=== PATIENT | female | born 1975 | race Caucasian/White ===

== ENCOUNTER → 2020-06-30 | Outpatient (CLI) | payer OTHER ==
[~2020-06-30] MED LIST: CRUTCH4 XX; IBUP800 PO; LOSA50 PO; Norco 5-325 Ta1 EACH PO
[2020-07-02 16:08] LABS: HPV 16 Negative (Negative); HPV 18 Negative (Negative); HPV OTHER HR TYPES Negative (Negative)
== END | disposition home or self-care (01) ==
LOC: LAB SHORT 10:50 → LAB 10:50
PROVIDERS: Nurse Practitioner
DX: Z12.4 Encounter for screening for malignant neoplasm of cervix (principal)
CPT/HCPCS: 87624; G0123

== ENCOUNTER 2021-02-24 08:19 | Day surgery (SDC) | payer OTHER ==
[2021-02-22 10:46] LABS: BASOPHILS ABSOLUTE AUTO 0.03 K/mm3 (0.00-0.23); BASOPHILS PERCENT AUTO 0 % (0-2); EOSINOPHILS ABSOLUTE AUTO 0.11 K/mm3 (0.00-0.68); EOSINOPHILS PERCENT AUTO 1 % (0-6); Hematocrit 38.5 % (33.0-51.0); IMMATURE GRAN ABSOLUTE AUTO 0.03 K/mm3 (0.00-0.10); IMMATURE GRAN PERCENT AUTO 0 % (0-1); LYMPHOCYTES ABSOLUTE AUTO 2.24 K/mm3 (0.84-5.20); LYMPHOCYTES PERCENT AUTO 28 % (21-46); MONOCYTES ABSOLUTE AUTO 0.42 K/mm3 (0.16-1.47); MONOCYTES PERCENT AUTO 5 % (4-13); Mean Corpuscular HGB 30.9 pg (26.0-34.0); Mean Corpuscular HGB Conc 33.8 g/dL (31.5-36.5); Mean Corpuscular Volume 91 fL (80-100); Mean Platelet Volume 9.9 fL (9.1-12.4); NEUTROPHILS ABSOLUTE AUTO 5.15 K/mm3 (1.96-9.15); NEUTROPHILS PERCENT AUTO 64 % (41-73); Platelet Count 271 K/mm3 (150-400); RDW Coefficient Variation 12.7 % (11.7-14.2); RDW Standard Deviation 41.8 fL (35.1-46.3); Red Blood Cell Count 4.21 M/mm3 (3.80-5.20); White Blood Cell Count 7.98 K/mm3 (4.00-11.30)
[2021-02-22 11:08] LABS: Anion Gap 7 mmol/L (6-16); Blood Urea Nitrogen 13 mg/dL (8-24); Bun/Creatinine Ratio 20.1 (12.0-20.0); CO2, Blood 24 mmol/L (21-32); Chloride, Blood 111 mmol/L (98-108); Creatinine, Blood 0.65 mg/dL (0.40-1.00); Glomerular Filtration Rate >60 (60-); Glucose, Blood 182 mg/dL (70-99); Sodium, Blood 142 mmol/L (136-145)
[~2021-02-24] VITALS: Ht 152.4 cm; Wt 113.4 kg
[~2021-02-24 08:19] MED LIST changes: +ALBU90OI; +ATOR10 PO; +METF500C PO; +Prozac20 MG; +TOPROL XL25 MG PO; +TRAZ50
--- NOTE | 2021-02-24 17:15 | NUR ---
DISCHARGE SUMMARY PT STATUS POST FOR LAP HYSTER WITH BILAT SALPINGECTOMY AND R OOPHORECTOMY. PT TOLERATING PO INTAKE WITHOUT NAUSEA. PT ALSO ABLE TO GET UP TO THE BATHROOM WITH A SBA TO VOID. PT VOIDED WITHOUT DIFFICULTY POST SURGERY. PT MEDICATED X2 FOR PAIN POST SURGERY. DC'D HOME WITH .
--- NOTE | 2021-03-01 11:07 | NUR ---
03/01/21 1107 Lo Cheeny VERIFICATIONS: EDIT CHART.
== END 2021-02-24 17:10 | disposition home or self-care (01) ==
LOC: ORSCMMR 08:19 → ORD 09:45 → ORSCMMR 12:43 → SURS 12:43 → ORSCMMR 17:10
PROVIDERS: Obstetrics & Gynecology
PROC: 8E0W4CZ Robotic Assisted Procedure of Trunk Region, Percutaneous Endoscopic Approach (ICD-10-PCS; principal; 2021-02-24 09:45)
PROC: 0UT74ZZ Resection of Bilateral Fallopian Tubes, Percutaneous Endoscopic Approach (ICD-10-PCS; principal; 2021-02-24 09:45)
PROC: 0UT04ZZ Resection of Right Ovary, Percutaneous Endoscopic Approach (ICD-10-PCS; principal; 2021-02-24 09:45)
PROC: 0UT94ZZ Resection of Uterus, Percutaneous Endoscopic Approach (ICD-10-PCS; principal; 2021-02-24 09:45)
DX: N92.0 Excessive and frequent menstruation with regular cycle (principal); D25.9 Leiomyoma of uterus, unspecified; N83.291 Other ovarian cyst, right side; I10 Essential (primary) hypertension; E78.5 Hyperlipidemia, unspecified; E11.9 Type 2 diabetes mellitus without complications; J45.909 Unspecified asthma, uncomplicated; F41.8 Other specified anxiety disorders; E66.01 Morbid (severe) obesity due to excess calories; Z68.42 Body mass index [BMI] 45.0-49.9, adult; Z79.84 Long term (current) use of oral hypoglycemic drugs; Z79.899 Other long term (current) drug therapy
CPT/HCPCS: 58571; S2900; 36415; 80048; 82947; 83036; 84703; 85025; 86850; 86900; 86901; 88307; A9270; J0690; J1100; J1885; J2250; J2370; J2405; J2704; J3010; J7120

== ENCOUNTER → 2022-10-20 | Outpatient (CLI) | payer OTHER ==
[2022-10-20 19:33] LABS: Adenovirus F 40/41 Not Detected (NOT DETECT); Astrovirus Not Detected (NOT DETECT); Campylobacter Sp Not Detected (NOT DETECT); Cryptosporidium Not Detected (NOT DETECT); Cyclospora Cayetanensis Not Detected (NOT DETECT); E. Coli O157 Not Detected (NOT DETECT); Entamoeba Histolytica Not Detected (NOT DETECT); Enteroaggregative E. coli-EAEC Not Detected (NOT DETECT); Enteropathogenic E. coli-EPEC Not Detected (NOT DETECT); Enterotoxigenic E. coli-ETEC Not Detected (NOT DETECT); Giardia Lamblia Not Detected (NOT DETECT); Norovirus GI/GII Not Detected (NOT DETECT); Plesiomonas Shigelloides Not Detected (NOT DETECT); Rotavirus A Not Detected (NOT DETECT); Salmonella Sp Not Detected (NOT DETECT); Sapovirus Not Detected (NOT DETECT); Shiga Toxin-prod E. coli-STEC Not Detected (NOT DETECT); Shigella/Enteroin E. coli-EIEC Not Detected (NOT DETECT); Vibrio Cholerae Not Detected (NOT DETECT); Vibrio Sp Not Detected (NOT DETECT); Yersinia Enterocolitica Not Detected (NOT DETECT)
== END | disposition home or self-care (01) ==
LOC: LAB SHORT 17:21 → LAB 17:21
PROVIDERS: Physician Assistant Medical
DX: R19.7 Diarrhea, unspecified (principal)
CPT/HCPCS: 87507

== ENCOUNTER 2024-12-27 19:22 | Emergency (ER) | payer BC, OTHER ==
[~2024-12-27] VITALS: Ht 152.4 cm; Wt 100.7 kg
[~2024-12-27 19:22] MED LIST changes: +DOXE25
[2024-12-27 20:05] LABS: Source, Urine Clean Catch
[2024-12-27 20:08] LABS: Bilirubin, Urine Neg (Neg); Color, Urine Yellow (P-Yellow); Glucose Qualitative, Urine 4+ (Neg); Ketones, Urine 1+ (Neg); Leukocyte Esterase, Urine 1+ (Neg); Protein, Urine 2+ (Neg); Specific Gravity, Urine 1.025 (1.003-1.022); Urobilinogen, Urine NORM (Normal)
[2024-12-27 20:22] LABS: Red Blood Cells, Urine TNTC /hpf (0-2); White Blood Cells, Urine 0-2 /hpf (0-5)
[2024-12-27 20:28] VITALS: BP 188/99
[2024-12-27] MEDS ORDERED: CEPH500 PO ×2 (20:33)
== END 2024-12-27 20:36 | disposition home or self-care (01) ==
LOC: ER 19:22
PROVIDERS: Student in an Organized Health Care Education/Training Program
DX: N30.01 Acute cystitis with hematuria (principal); E11.9 Type 2 diabetes mellitus without complications; I10 Essential (primary) hypertension; Z91.040 Latex allergy status; Z87.442 Personal history of urinary calculi; Z79.899 Other long term (current) drug therapy; Z79.84 Long term (current) use of oral hypoglycemic drugs
CPT/HCPCS: 81001; 87086; 99283; A9270

== ENCOUNTER 2024-12-31 18:05 | Emergency (ER) | payer BC, OTHER ==
[~2024-12-31] VITALS: Ht 152.4 cm; Wt 100.7 kg
[~2024-12-31 18:05] MED LIST changes: -ALBU90OI; +ALBU90OI INH; +CEPH500 PO; -DOXE25; +DOXE25 PO
[2024-12-31] MEDS ORDERED: Ketorolac Tromethamine 30mg Vial IV ONE (18:20)
[2024-12-31 18:57] LABS: BASOPHILS ABSOLUTE AUTO 0.04 K/mm3 (0.00-0.23); BASOPHILS PERCENT AUTO 0 % (0-2); EOSINOPHILS ABSOLUTE AUTO 0.13 K/mm3 (0.00-0.68); EOSINOPHILS PERCENT AUTO 1 % (0-6); Hematocrit 43.6 % (33.0-51.0); Hemoglobin 14.9 g/dL (11.5-16.0); IMMATURE GRAN ABSOLUTE AUTO 0.03 K/mm3 (0.00-0.10); IMMATURE GRAN PERCENT AUTO 0 % (0-1); LYMPHOCYTES ABSOLUTE AUTO 3.60 K/mm3 (0.84-5.20); LYMPHOCYTES PERCENT AUTO 37 % (21-46); MONOCYTES ABSOLUTE AUTO 0.46 K/mm3 (0.16-1.47); MONOCYTES PERCENT AUTO 5 % (4-13); Mean Corpuscular HGB Conc 34.2 g/dL (31.5-36.5); Mean Corpuscular Volume 90 fL (80-100); NEUTROPHILS ABSOLUTE AUTO 5.59 K/mm3 (1.96-9.15); NEUTROPHILS PERCENT AUTO 57 % (41-73); NRBC ABSOLUTE 0.00 K/mm3 (0.00-0.02); NRBC Auto 0.0 /100 WBC (0.0-0.2); Platelet Count 263 K/mm3 (150-400); RDW Coefficient Variation 11.7 % (11.7-14.2); RDW Standard Deviation 38.0 fL (35.1-46.3)
[2024-12-31 18:59] LABS: Source, Urine Clean Catch
[2024-12-31 19:12] LABS: Bilirubin, Urine Neg (Neg); Color, Urine Brown (P-Yellow); Glucose Qualitative, Urine 3+ (Neg); Ketones, Urine 1+ (Neg); Leukocyte Esterase, Urine 1+ (Neg); Protein, Urine 4+ (Neg); Specific Gravity, Urine 1.025 (1.003-1.022); Urobilinogen, Urine 1+ (Normal)
[2024-12-31 19:15] LABS: Red Blood Cells, Urine TNTC /hpf (0-2)
[2024-12-31 19:37] LABS: Alanine Aminotransfer (ALT/SGP 46.0 U/L (12-78); Albumin, Blood 3.8 g/dL (3.4-5.0); Albumin/Globulin Ratio 1.1 (0.8-1.8); Anion Gap 7.0 mmol/L (3-11); Aspartate Aminotrans (AST/SGOT 22.0 U/L (12-37); Bilirubin, Total 0.3 mg/dL (0.1-1.0); Blood Urea Nitrogen 8.0 mg/dL (8-24); CO2, Blood 24.0 mmol/L (21-32); Calcium, Blood 9.1 mg/dL (8.5-10.1); Chloride, Blood 106.0 mmol/L (98-108); Creatinine, Blood 0.54 mg/dL (0.40-1.00); Globulin, Blood 3.5 g/dL (2.2-4.0); Glucose, Blood 247.0 mg/dL (70-99); Potassium, Blood 3.7 mmol/L (3.5-5.5); Sodium, Blood 133.0 mmol/L (136-145); Total Protein, Blood 7.3 g/dL (6.4-8.2)
[2024-12-31] MEDS ORDERED: NS 1,000 ML IV SCH (20:45)
[2024-12-31 23:17] LABS: Source, Urine Straight Cath
[2024-12-31 23:33] VITALS: BP 200/130
[2025-01-01] LABS: Bilirubin, Urine Neg (Neg); Glucose Qualitative, Urine Neg (Neg); Ketones, Urine Neg (Neg); Leukocyte Esterase, Urine Neg (Neg); Protein, Urine 2+ (Neg); Specific Gravity, Urine 1.010 (1.003-1.022); Urobilinogen, Urine NORM (Normal)
[2025-01-01 00:01] LABS: Color, Urine Red (P-Yellow)
[2025-01-01 00:02] LABS: Red Blood Cells, Urine TNTC /hpf (0-2); White Blood Cells, Urine 0-2 /hpf (0-5)
[2025-01-02] MEDS ORDERED: LOSA50 PO (06:40)
[2025-01-02] MEDS ORDERED: BASAGLAR K100 UNIT/3 SC (06:41)
[2025-01-02] MEDS ORDERED: REGLAN1013 PO (06:42)
== END 2025-01-01 00:38 | disposition home or self-care (01) ==
LOC: ER 18:05
PROVIDERS: Student in an Organized Health Care Education/Training Program
DX: N13.2 Hydronephrosis with renal and ureteral calculous obstruction (principal); N83.202 Unspecified ovarian cyst, left side; E87.1 Hypo-osmolality and hyponatremia; E11.65 Type 2 diabetes mellitus with hyperglycemia; R74.8 Abnormal levels of other serum enzymes; R31.9 Hematuria, unspecified; I10 Essential (primary) hypertension; Z79.84 Long term (current) use of oral hypoglycemic drugs; Z79.899 Other long term (current) drug therapy; Z91.040 Latex allergy status
CPT/HCPCS: 51701; 74177; 80053; 81001; 83690; 85025; 87086; 87106; 96361; 96374-59; 99284-25; J1885; J7030; Q9967

== ENCOUNTER 2025-01-02 06:28 | Day surgery (SDC) | payer BC, OTHER ==
[~2025-01-02] VITALS: Ht 152.4 cm; Wt 98.4 kg
[2025-01-02] VITALS (11 sets, daily range): BP systolic 111–157; BP diastolic 59–97
[2025-01-02] MEDS ORDERED: LOSA50 PO (06:40)
[2025-01-02] MEDS ORDERED: BASAGLAR K100 UNIT/3 SC (06:41)
[2025-01-02] MEDS ORDERED: REGLAN1013 PO (06:42)
[2025-01-02] MEDS ORDERED: CeFAZolin Sodium 2,000 MG in NS 100 ML IV SCH (07:25)
[2025-01-02] MEDS ORDERED: CeFAZolin Sodium 2,000 MG VIAL ONE (07:32)
[2025-01-02] MEDS ORDERED: Midazolam HCl 1MG / ML 2ML Vial ONE (07:50)
[2025-01-02] MEDS ORDERED: FentaNYL Citrate 50 MCG/ML 2 ML Injection ONE (07:50)
[2025-01-02] MEDS ORDERED: HYDROmorphone HCl/Pf 1MG SYR IV PRN ×2 (08:25)
[2025-01-02] MEDS ORDERED: FentaNYL Citrate 50 MCG/ML 2 ML Injection IV PRN ×2 (08:25→08:30)
[2025-01-02] MEDS ORDERED: Ondansetron HCl 2 MG / ML 2ML Vial IV PRN (08:30)
[2025-01-02] MEDS ORDERED: Sugammadex Sodium 200 MG/2ML SDV (100 MG/ML) ONE (08:47)
[2025-01-02] MEDS ORDERED: HYDROcodone 5-APAP 325 TAB PO PRN (09:45)
--- NOTE | 2025-01-02 10:16 | NUR ---
DISCHARGE NOTE PT A&OX4, BREATHING RA, NO NAUSEA AND PAIN CONTROLLED WITH PO PAIN MEDICATIONS. Patient up to Ambulate independently. Gait steady. Discharge instructions reviewed with patient. Patient verbalizes understanding. Copy given to patient to take home. Discharged via wheelchair to private car for ride home.
== END 2025-01-02 10:13 | disposition home or self-care (01) ==
LOC: ORD 06:28 → ORSCMMR 06:28 → ORD 07:30 → ORSCMMR 10:13 → ORD 10:13
PROVIDERS: Urology
PROC: BT1FZZZ Fluoroscopy of Left Kidney, Ureter and Bladder (ICD-10-PCS; principal; 2025-01-02 08:00)
PROC: 0T778DZ Dilation of Left Ureter with Intraluminal Device, Via Natural or Artificial Opening Endoscopic (ICD-10-PCS; principal; 2025-01-02 08:00)
DX: N20.2 Calculus of kidney with calculus of ureter (principal); R31.0 Gross hematuria; N13.1 Hydronephrosis with ureteral stricture, not elsewhere classified; I10 Essential (primary) hypertension; F17.210 Nicotine dependence, cigarettes, uncomplicated; E11.9 Type 2 diabetes mellitus without complications; K21.9 Gastro-esophageal reflux disease without esophagitis; G47.33 Obstructive sleep apnea (adult) (pediatric); E66.01 Morbid (severe) obesity due to excess calories; Z68.41 Body mass index [BMI] 40.0-44.9, adult; J45.909 Unspecified asthma, uncomplicated; Z79.899 Other long term (current) drug therapy; Z79.4 Long term (current) use of insulin; Z79.84 Long term (current) use of oral hypoglycemic drugs
CPT/HCPCS: 82947; 93005; 93010; A9270; C1758; C1769; C2617; J0690; J2250; J2704; J3010; J7120

== ENCOUNTER → 2025-01-15 | Outpatient (CLI) | payer BC, OTHER ==
[~2025-01-15] MED LIST changes: +BASAGLAR K100 UNIT/3 SC; +REGLAN1013 PO
== END ==
LOC: LAB 11:41 → LAB SHORT 11:41
DX: D49.0 Neoplasm of unspecified behavior of digestive system (principal)
CPT/HCPCS: 88305

== ENCOUNTER 2025-01-30 10:33 | Day surgery (SDC) | payer BC, OTHER ==
[2025-01-30] VITALS (7 sets, daily range): BP systolic 142–172; BP diastolic 84–97
[~2025-01-30] VITALS: Ht 152.4 cm; Wt 96.8 kg
[~2025-01-30 10:33] MED LIST changes: +BUDESONIDE-FO10.2 G3 INH; +METO25ER PO; +TRAM50 PO
[2025-01-30] MEDS ORDERED: CeFAZolin Sodium 2,000 MG in NS 100 ML IV SCH (11:50)
--- NOTE | 2025-01-30 12:13 | NUR ---
Ambulatory in Day Surgery. History, Chart, Medications and Allergies reviewed before start of procedure. Lungs clear T/O to Auscultation. Patient confirms NPO status and agrees with scheduled surgery. Pre-Op teaching done. Pt verbalizes understanding. Patient States Post-Procedure ride home has been arranged. Patient reports completing Chlorhexadine shower X2 prior to admission to hospital.
[2025-01-30] MEDS ORDERED: FentaNYL Citrate 50 MCG/ML 2 ML Injection ONE (12:53)
[2025-01-30] MEDS ORDERED: Rocuronium Bromide 10 MG/ML 5ML Injection IV ONE (12:54)
[2025-01-30] MEDS ORDERED: Phenylephrine HCl 100 MCG/ML-NS 10MLSYR (1MG/10ML) ONE (13:19)
[2025-01-30] MEDS ORDERED: HYDROmorphone HCl/Pf 1MG SYR IV PRN ×2 (13:20)
[2025-01-30] MEDS ORDERED: Metoclopramide HCl 5MG / ML 2ML Vial IV PRN (13:25)
[2025-01-30] MEDS ORDERED: FentaNYL Citrate 50 MCG/ML 2 ML Injection IV PRN (13:25)
[2025-01-30] MEDS ORDERED: Albuterol 2.5 MG/3 ML VIAL INH PRN (13:25)
[2025-01-30] MEDS ORDERED: Ketorolac Tromethamine 30mg Vial IV PRN (13:30)
[2025-01-30] MEDS ORDERED: Sugammadex Sodium 200 MG/2ML SDV (100 MG/ML) ONE (13:50)
[2025-01-30] MEDS ORDERED: HYDROcodone 5-APAP 325 TAB PO PRN (14:20)
--- NOTE | 2025-01-30 15:06 | NUR ---
PT DOING WELL SLIGHTLY PAINFUL MEDICATED WITH 5MG NORCO X1 NO N.V PT DOING WELL Patient States Post-Procedure ride home has been arranged. Discharged via wheelchair to private car for ride home. Discharge instructions reviewed with patient. Patient verbalizes understanding. Copy given to patient to take home.
[2025-01-30] MEDS ORDERED: Ondansetron HCl 2 MG / ML 2ML Vial IV ONE (19:02)
[2025-01-30] MEDS ORDERED: Dexamethasone Sod Phos 10 MG/ML 1ML VIAL IV ONE (19:02)
[2025-04-04] MEDS ORDERED: CEPH500 PO (19:38)
[2025-04-04] MEDS ORDERED: DOXY100 PO (19:38)
== END 2025-01-30 23:00 | disposition home or self-care (01) ==
LOC: ORSCMMR 10:33 → ORD 11:45 → ORSCMMR 23:00 → ORSCSDS 03-03 09:45
PROVIDERS: Urology
PROC: 0TF48ZZ Fragmentation in Left Kidney Pelvis, Via Natural or Artificial Opening Endoscopic (ICD-10-PCS; principal; 2025-01-30 11:45)
PROC: 0TF78ZZ Fragmentation in Left Ureter, Via Natural or Artificial Opening Endoscopic (ICD-10-PCS; principal; 2025-01-30 11:45)
PROC: 0T778DZ Dilation of Left Ureter with Intraluminal Device, Via Natural or Artificial Opening Endoscopic (ICD-10-PCS; principal; 2025-01-30 11:45)
DX: N13.2 Hydronephrosis with renal and ureteral calculous obstruction (principal); R31.0 Gross hematuria; R10.812 Left upper quadrant abdominal tenderness; E11.9 Type 2 diabetes mellitus without complications; I10 Essential (primary) hypertension; E78.5 Hyperlipidemia, unspecified; F17.210 Nicotine dependence, cigarettes, uncomplicated; Z79.899 Other long term (current) drug therapy; Z79.4 Long term (current) use of insulin; Z79.84 Long term (current) use of oral hypoglycemic drugs
CPT/HCPCS: 82947; A9270; C1758; C1769; C2617; J0690; J1100; J2371; J2405; J2704; J3010; J7120